=== PATIENT | female | born 1995 | race Caucasian/White ===

== ENCOUNTER 2018-03-14 18:29 | Emergency (ER) | payer MEDICAID ==
[~2018-03-14] VITALS: Ht 167.6 cm; Wt 67.1 kg
[2018-03-14 18:39] VITALS: BP 121/95
--- NOTE | 2018-03-14 18:50 | NUR ---
THE PATIENT IS A 22 YO FEMALE BIB [facility] WHO TOOK A PRE WORK OUT DRINK AND NOW FEELS DIZZY AND HER HEART IS RACING, SHE IS PALE AND COOL. SHE STATES HER CHEST FEELS TIGHT. SHE AMBULATED TO CHAIR E FOR MD KNIGHT DUE TO NO BEDS.
--- NOTE | 2018-03-14 19:08 | NUR ---
PATIENT CAME TO NURSING STATION AND STATED SHE FEELS BETTER ANS WANTS TO GET GOING SHE WILL SIT IN THE LOBBY FOR A FEW MINUTES.
[2018-03-14 19:16] VITALS: BP 121/95
--- NOTE | 2018-03-14 19:16 | NUR ---
PT WALKED OUT OF THE LOBBY. PT NOT SEEN IN PARKING LOT. LWBS AT THIS TIME. ER MD AGUIRRE NOTIFIED.
== END 2018-03-14 19:16 | disposition left against medical advice (07) ==
LOC: MED 18:29
DX: R20.0 Anesthesia of skin (principal); Z53.21 Procedure and treatment not carried out due to patient leaving prior to being seen by health care provider

== ENCOUNTER 2022-07-10 19:50 | Emergency (ER) | payer MEDICAID ==
[~2022-07-10] VITALS: Ht 165.1 cm; Wt 65.8 kg
[2022-07-10 20:55] VITALS: BP 137/75
--- NOTE | 2022-07-10 22:00 | NUR ---
PT CALLED IN LOBBY AND OUTSIDE x3 WITH NO ANSWER. PT LWBS.
== END 2022-07-10 22:00 | disposition left against medical advice (07) ==
LOC: MED 19:50
DX: F41.9 Anxiety disorder, unspecified (principal); Z53.21 Procedure and treatment not carried out due to patient leaving prior to being seen by health care provider
CPT/HCPCS: 99281